=== PATIENT | male | born 1935 | race Caucasian/White ===

== ENCOUNTER 2020-10-31 08:02 | Inpatient (IN) | payer OTHER ==
[~2020-10-31] VITALS: Ht 175.3 cm; Wt 65.9 kg
--- NOTE | ~2020-10-31 | EEG ---
[facility] [place] [address] ELECTROENCEPHALOGRAM Name: ELLIS TEIXEIRA Room #: 453-P [facility] IN M.R.#: [id number] Admission: 10/31/20 Attend Phys: Thuy Fabian MD Discharge: Date of : 33 Report #: [id number] THIS REPORT FOR: //name// DATE OF SERVICE: 11/02/2020 This patient is being evaluated for altered mental status. EEG was done by placing the electrode by standard 10-20 system of electrode placement. Both referential and sequential montages were used for recording. Background activity is about 7-8 Hz and 30 microvolt. The patient went to sleep that is associated with bilaterally symmetrical sleep spindle and vertex sharp waves. Photic stimulation is unremarkable. No active epileptiform activity was noticed. IMPRESSION: This patient's study demonstrate bilateral slowing and poorly formed EEG. That is a nonspecific finding which can occur with encephalopathy, effect of psychotropic medication, dementia, etc. No active epileptiform activity was noticed during this record. Thank you very much for this referral. By: [id number] Kenneth Nolen MD /nt
[2020-10-31 08:05] VITALS: BP 173/90
[2020-10-31 08:26] LABS: ABSOLUTE NEUTROPHILS 6.5 thou/uL (1.4-8.2); BASOPHILS 0.2 % (0.0-2.0); HEMATOCRIT 40.6 % (42.0-52.0); HEMOGLOBIN 13.1 gm/dL (14.0-18.0); LYMPHOCYTES 5.5 % (24.0-44.0); MCH 29.4 pg (26.0-34.0); MCHC 32.2 g/dL (28.0-37.0); MCV 91.2 fL (80.0-100.0); MONOCYTES 7.1 % (1.0-8.0); PLATELET COUNT 150 thou/uL (150-400); POLYS 87.2 % (36.0-66.0); RBC 4.45 mil/uL (4.50-6.00); RDW 13.6 % (10.5-14.5); WBC 7.5 thou/uL (4.0-11.0)
[2020-10-31 08:30] LABS: URINE BILIRUBIN NEGATIVE (Negative); URINE BLOOD 3+ (Negative); URINE CLARITY CLEAR; URINE COLOR YELLOW; URINE GLUCOSE-RANDOM* NEGATIVE (Negative); URINE KETONES 2+ (Negative); URINE LEUKOCYTES-REFLEX NEGATIVE (Negative); URINE NITRITE-REFLEX NEGATIVE (Negative); URINE PROTEIN (DIPSTICK) TRACE (Negative); URINE SPECIFIC GRAVITY 1.025 (1.005-1.035)
[2020-10-31 08:40] LABS: AMP/METHAMP Negative (Negative); BARBITURATES Negative (Negative); BENZODIAZEPINES Negative (Negative); COCAINE Negative (Negative); METHADONE Negative (Negative); OPIATES Negative (Negative); PCP Negative (Negative)
[2020-10-31 08:40] LABS: CALCIUM 8.9 mg/dL (8.5-10.1); CREATININE 1.2 mg/dL (0.7-1.3); POTASSIUM 3.9 mmol/L (3.5-5.1)
[2020-10-31 08:41] LABS: APTT 27.6 Seconds (24.5-32.8); INR 1.24; PROTIME 13.4 Seconds (10.5-12.1)
[2020-10-31 08:50] LABS: CASTS None Seen /LPF (None Seen); MUCUS 4-6 Moderate strn/LPF (None Seen); SQUAMOUS 0-3 Few /LPF (0-3)
[2020-10-31 08:50] LABS: ALBUMIN 3.5 g/dL (3.4-5.0); TOTAL BILIRUBIN 1.4 mg/dL (0.2-1.0); TOTAL PROTEIN 7.1 g/dL (6.4-8.2)
[2020-10-31 08:51] LABS: URINE WBC-REFLEX 0-5 Rare /HPF (0-5)
[2020-10-31 08:52] LABS: BACTERIA-REFLEX None Seen /HPF (None Seen); CRYSTALS None Seen /LPF (None Seen)
--- NOTE | 2020-10-31 11:17 | EKG ---
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
[2020-10-31] MEDS ORDERED: LIPITOR 40 MG T40 M1 PO (11:48)
[2020-10-31] MEDS ORDERED: LISINOPRIL5 MG PO (11:48)
[2020-10-31 12:39] LABS: FOLIC ACID 15.1 ng/mL (8.6-58.9)
[2020-10-31 16:00] VITALS: BP 158/61
[2020-10-31 17:23] VITALS: BP 158/61
--- NOTE | 2020-10-31 17:35 | NUR ---
RN ATTEMPTED TO CALL REPORT
[2020-10-31 18:03] VITALS: BP 158/61
--- NOTE | 2020-10-31 18:08 | NUR ---
84 year old males admitted to the ED on 10-31-20 with AMS and was found outside in his yard and EMS was called. Patient has a NIH stroke scale of 3 but no known last known normal therefore is not a candidate for TPA. There is no evidence of large vessel occlusion on CTA. Patient found to have rhabdomyolysis and was treated with IV fluids. Patient is otherwise clinically stable but will need to be admitted for further evaluation. Neurology consult has been placed. The patient ID NOW in the ED is negative and ED Triage assessment lists the patient as not vaccinated. Per the ED records and MD interactions the patient is listed as alert and awake and confused. Noted to live at home with daughter Dawn at [phone] # busy x3 as well as son Baldomero Thapa at [phone]. Did reach son and gave him the name of the nurse and the direct line to the ED as per the ED they had not been able to make contact with the family. Son spoke again to me and looking at a move to possible SNF to LTC. Explained that CM will assure that therapy orders are in and will work with patient, son and MD's to collaborate needs at time of discharge including skilled care. Anticipate as plan of care with medical team develops CM will follow for any identified needs at discharge.
[2020-10-31 18:15] VITALS: BP 162/98
--- NOTE | 2020-10-31 18:39 | NUR ---
PATIENT ARRIVED TO UNIT AT APPROX. 1820. SETTLED IN BED AND ORIENTED TO ROOM; GGIVEN CALL LIGHT. PATIENT IS VERY CONFUSED AND ACTIVELY TRYING TO GET OUT OF BED. PATIENT NOT MAKIN SENSE; UNABLE TO DO ADMISSION HX OR EDUCATION. VSS. ENDORSED TO NOC RN
--- NOTE | 2020-10-31 20:00 | NUR ---
Admission assessment and history is completed as best as possible. Pt. with confusion and is a poor historian. He is resting quietly in the bed without any complaints. Er was unable to contact the daughter. Bed alarm is on,
[2020-11-01 04:06] VITALS: BP 140/65
[2020-11-01 05:21] LABS: BASOPHILS 0.2 % (0.0-2.0); EOSINOPHILS 0.3 % (0.0-3.0); HEMATOCRIT 37.7 % (42.0-52.0); HEMOGLOBIN 12.4 gm/dL (14.0-18.0); LYMPHOCYTES 8.2 % (24.0-44.0); MCH 29.9 pg (26.0-34.0); MCHC 32.8 g/dL (28.0-37.0); MCV 91.2 fL (80.0-100.0); MONOCYTES 6.5 % (1.0-8.0); PLATELET COUNT 133 thou/uL (150-400); POLYS 84.8 % (36.0-66.0); RBC 4.13 mil/uL (4.50-6.00); RDW 13.8 % (10.5-14.5); WBC 7.1 thou/uL (4.0-11.0)
--- NOTE | 2020-11-01 06:10 | NUR ---
Pt. rested quietly during the night when checked on during frequent rounds. Incontinent of stool and danny care given. Bed alarm is on.
[2020-11-01 06:13] LABS: CALCIUM 7.5 mg/dL (8.5-10.1); CREATININE 0.9 mg/dL (0.7-1.3); MAGNESIUM 1.8 mg/dL (1.8-2.4); POTASSIUM 3.9 mmol/L (3.5-5.1)
[2020-11-01 07:43] VITALS: BP 157/77
--- NOTE | 2020-11-01 09:26 | NUR ---
84 year old males admitted to the ED on 10-31-20 with AMS and was found outside in his yard and EMS was called. Patient has a NIH stroke scale of 3 but no known last known normal therefore is not a candidate for TPA. There is no evidence of large vessel occlusion on CTA. Patient found to have rhabdomyolysis and was treated with IV fluids. Patient is otherwise clinically stable but will need to be admitted for further evaluation. Neurology consult has been placed. The patient ID NOW in the ED is negative and ED Triage assessment lists the patient as not vaccinated. Per the ED records and MD interactions the patient is listed as alert and awake and confused. Noted to live at home with daughter Dawn at [phone] # busy x3 as well as son Baldomero Thapa at [phone]. Did reach son and gave him the name of the nurse and the direct line to the ED as per the ED they had not been able to make contact with the family. Son spoke again to me and looking at a move to possible SNF to LTC. Explained that CM will assure that therapy orders are in and will work with patient, son and MD's to collaborate needs at time of discharge including skilled care. CM CALLED PT'S DTR AND SON THIS AM...DTR'S PHONE WAS BUSY. CM LEFT VM FOR PT'S SON.CM FOLLOWING TO ASSIST WITH DC NEEDS.
[2020-11-01 15:17] VITALS: BP 145/88
--- NOTE | 2020-11-01 17:54 | NUR ---
ASSUMED PATIENTS CARE AT 1300. PATIENT HAS BEEN CALM AND COOPERATIVE. A&OX1-2. PERIODS OF CONFUSION NOTED. SISTER HER VISITING WITH PATIENT. PATIENT HAD DECREASED APPETITE AND DID NOT EAT LUNCH. HOWEVER, WAS READY TO EAT DINNER. IV WAS PULLED OUT. NEW IV PLACED. WILL CONTINUE TO MONITOR.
[2020-11-01 19:22] VITALS: BP 147/74
--- NOTE | 2020-11-02 04:28 | NUR ---
CARE ASSUMED AT 1900 PATIENT WAS UP ON THE RECLINER. PATIENT AOX1 CONFUSED AND FORGETFUL. PATIENT DENIED PAIN OR DISCMFORT. PATIENT TURNED Q 2 HOURS. CATH CARE DONE. FALL PRRECAUTION IN PLACE. PATIENT NEED X2 ASSIST WITH TRANSFER. PATIENT IN BED ASLEEP AT THIS TIME BREATHING REGULAR AND UNLABOURED.
[2020-11-02 07:55] VITALS: BP 144/63
--- NOTE | 2020-11-02 13:43 | NUR ---
RASHI SPOKE WITH PT'S SON THIS DAY AND HE ASKED THAT REFERRAL BE SENT TO [facility] FOR REVIEW FOE POSSIBLE ADMISSION. RASHI FAXED REFERRAL AND SPOKE WITH SHELLY. SHE CALLED AND INDICATED THAT THEY CAN'T ACCEPT PT THEY DON'T HAVE ANY BEDS AVAIABLE. CM TO NOTIFY SON AND SEE WHERE ELSE THEY WANT REFERRALS SENT.
[2020-11-02 15:50] VITALS: BP 168/87
--- NOTE | 2020-11-02 19:32 | NUR ---
Assumed pt care this am vs stable. Pleasantly confused through out the shift, got worse late in the afternoon. Pt has to be at the nurses station on his recliner since pt was starting to be impulsive. Was taken down to MRI but was not successful since pt could not straighten hi neck and head. MD advised 1 time haldol given, 1:1 sitter ordered. POC followed, no signs or verbalizations of distress noted. Endorsed to the night nurse.
--- NOTE | 2020-11-02 23:30 | NUR ---
Pt. pleasantly confused, but was a little restless earlier during the shift. Constantly wanting to get up out of the chair and pulled at tom catheter a few times. Pt. was walked around the unit a few times. Assisted to bed with bed alarm on.
--- NOTE | 2020-11-03 04:23 | NUR ---
Pt. rested quietly during the night, but had an episode of being compulsive. Tried to get up out of the bed without use of the call light. Pt. redirected back in the bed and bed alarm set.
[2020-11-03 08:54] VITALS: BP 131/75
--- NOTE | 2020-11-03 12:01 | NUR ---
ASSUMED PT CARE THIS AM. PT A&OX1, MAKES SOME NEEDS KNOWN. PATIENT HAS A DAWSON CATHETER IN PLACE. PATIENT HAS WEAKNESS IN LOWER EXTREMETIES. DAWSON CATHETER IN PLACE, DRAINING WELL. PATIENT TOOK ALL MORNING MEDICATIONS WITHOUT ISSUE. PATIENT IS ON ROOM AIR. IV PATENT, FLUIDS INFUSING. PATIENT REMAINS ON TELE. UP WITH ASSIST IN ROOM. FALL PRECAUTIONS ARE IN PLACE, CALL LIGHT WITHIN REACH.
--- NOTE | 2020-11-03 12:32 | NUR ---
RASHI CALLED AND SPOKE WITH LENNIE AT [facility] AND SHE INDIATED THAT HE FINANCE OFFICE IS REVIEWING REFERRAL AND THAT THEY WILL LIKELY BE ABLE TO ACCEPT BUT SHE WILL LET CM KNOW.
[2020-11-03 20:03] VITALS: BP 138/85
--- NOTE | 2020-11-04 06:00 | NUR ---
Pt. rested quietly at short intervals during the night when checked on during frequent rounds. He has attempted to get up out of bed a few times. He was brought out to the nurses station for closer observation. He ambulated to the bathroom with gait belt,walker and assist of one. Pt. has been voiding since tom catheter removal. Currently, resting quietly in the bed with bed alarm on.
[2020-11-04 08:59] VITALS: BP 154/64
--- NOTE | 2020-11-04 14:23 | NUR ---
ASSUMED CARE OF PATIENT AT SHIFT CHANGE. ASSESSMENT CHARTED. MEDICATIONS ADMINISTERED PER EMAR. VSS. PATIENT IS A&O TO SELF AND IMPULSIVE THIS DAY. PATIENT WAS MOVED TO NURSES STATION FOR MEALS THIS DAY DUE TO FALL RISK. PATIENT SHOVED STAFF'S HANDS AWAY WHEN TRYING TO REDIRECT HIM BACK TO BED, CHAIR OR BATHROOM. PATIENT GETTING UP WITH WALKER TO BATHROOM BUT STILL UNSTEADY. ZYPREXA STARTED FOR BEHAVIORS; PATIENT STILL RESTLESS & FIDGETING. FALL PRECAUTIONS REMAIN IN PLACE. VOICES NO NEEDS AT THIS TIME. TOLERATING PO INTAKE WELL. WILL CONTINUE TO MONITOR
[2020-11-04 17:14] VITALS: BP 129/76
[2020-11-04 19:43] VITALS: BP 120/75
--- NOTE | 2020-11-05 05:28 | NUR ---
Pt. rested at short intervals during the night when checked on during frequent rounds. Restless at times and was taken out to the nurses station in recliner chair for closer observations. He would not stay in the bed and sounded the bed alarm off. Cooperative with direct care. Currently in the bed resting quietly.
[2020-11-05 08:10] VITALS: BP 125/82
--- NOTE | 2020-11-05 19:22 | NUR ---
TODAY THIS PT HAS BEEN NSR ON THE MONITOR WITH NO STATED PAIN AND STABLE VS. HE WAS COMBATIVE AT THE START OF MY SHIFT BUT SINCE MEDICATION HE HAS BEEN JOKING AROUND AND TALKING WITH US. HE HAS OTHERWISE BEEN WALKING TO THE BATHROOM AND TOLERATING HIS MEAL TRAY FINE.
--- NOTE | 2020-11-06 03:54 | NUR ---
Pt. has rested very little during the shift. He is very restless and meds given for agitation (see emar) with little relief. He is currently up in the recliner at the nurses desk because he will not stay in the bed to rest. He attempts to get up out of the chair also and chair alarm is on. He has been toileted.
[2020-11-06 08:09] VITALS: BP 160/95
--- NOTE | 2020-11-06 11:35 | NUR ---
CM SPOKE WITH PT'S SON ELLIS THIS AM. CM ASKED WHERE HE AND HIS SISTER WILLIAM WANTED REFERRALS SENT FOR REVIEW FOR POSSIBLE ADMISSION. HE INDICATED THAT THEY HAD SPOKE AND THAT THEY WERE INTERESTED IN PT DISCHARGING HOME AND HAVING WILLIAM MOVING IN WITH HIM AND PROVIDING 24/7 SUPERVISION AND ASSISTANCE. CM CONVEYED THIS PLAN TO HOSPITALIST AND SHE INDICATED SHE WOULD REACH OUT TO SON THAT SHE THINKS PT MIGHT BENEFIT FROM STAY ON [facility]. CM FOLLOWING REGARDING DC PLANNING.
--- NOTE | 2020-11-06 12:11 | NUR ---
ASSUMED PT CARE THIS AM. PATIENT IS ALERT TO SELF, DOES NOT MAKE NEEDS KNOWN. PATIENT REFUSING MEDICATIONS THIS AM, AND HAS BEEN IMPULSIVE. PATIENT HAS BEEN INCONTINENT THIS SHIFT. PATIENT REFUSED TO BE ASSESSED BY THIS NURSE, ASSESSED MUCH ALLOWED. PATIENT UP WITH MAX ASSIST FOR NURSING STAFF. PATIENT APPEARS TO BE IN NO PAIN, RESTING AT THIS TIME. FALL PRECAUTIONS ARE IN PLACE.
[2020-11-06 17:59] VITALS: BP 132/91
[2020-11-06 19:38] VITALS: BP 134/80
--- NOTE | 2020-11-07 03:35 | NUR ---
TODAY THIS PT HAS BEEN CALM AND COOPERATIVE FOR THE MOST PART OF THE NIGHT HE DID LET US PUT HIS TELE MONITOR BACK ON AND HE DID TAKE HIS MEDICATIONS FROM ME. HE HAS BEEN IN HIS CHAIR FOR SOME OF THE NIGHT AND AWAITING FOR THE NEXT PLAN.
[2020-11-07 07:25] VITALS: BP 147/67
--- NOTE | 2020-11-07 09:46 | NUR ---
Nutrition: No BM documented since 10/31. On PRN miralax. May benefit from scheduled bowel regimen.
--- NOTE | 2020-11-07 11:26 | NUR ---
ASSUMED PT CARE THIS AM. PATIENT IS A&OX1, DOES NOT MAKE ALL NEEDS KNOWN. PATIENT TOOK MORNING MEDICATIONS WITHOUT ISSUE. PATIENT STILL IMPULSIVE THIS SHIFT. PATIENT REMAINS INCONTINENT. PATIENT IS ON ROOM AIR. PATIENT REMAINS ON TELEMETRY. PATIENT IS A MAX ASSIST. FALL PRECAUTIONS ARE IN PLACE.
--- NOTE | 2020-11-07 15:33 | NUR ---
CM GOT VM FROM [facility] ON [facility]S [facility] AND SHE INDICATED THAT THEY ARE PLANNING TO ACCEPT PT THIS DAY PENDING NEGATIVE COVID TEST. CM NOTIFED NURSING STAFF OF UNIT. CM REQUESTED CHART COPY. ANTICIPATE PT GOING TO [facility]S HERE AT [facility] THIS EVENING. PT'S SON AWARE AND AGREEABLE. NO OTHER CM INTERVENTION INDICATED. CASE CLOSED.
[2020-11-07] MEDS ORDERED: DEPAKOTE SPRIN125 MG PO (17:11)
[2020-11-07] MEDS ORDERED: PROTONIX 20 MG20 M1 PO (17:11)
[2020-11-07] MEDS ORDERED: NORVASC5 MG PO (17:11)
[2020-11-07] MEDS ORDERED: ZYPREXA 5 MG TAB5 M1 PO (17:11)
[2020-11-07 17:23] VITALS: BP 135/86
--- NOTE | 2020-11-16 02:00 | HC ---
[facility] [place] [address] CONSULTATION Name: ELLIS TEIXEIRA Room #: 453-P [facility] IN M.R.#: [id number] Admission: 10/31/20 Attend Phys: Thuy Fabian MD Discharge: 11/07/20 Date of : 34 Report #: [id number] THIS REPORT FOR: cc: FAM - Family physician unknown FAM - Family physician unknown Kenneth Nolen MD ~ DATE OF SERVICE: 11/01/2020 HISTORY OF PRESENT ILLNESS: An 84-year-old male patient who is a poor historian. There is no family member I can reach. He is admitted with altered mental status. He was found by neighbors and was brought to Emergency Room. It is not clear what his baseline mental status is. In the emergency room, he underwent a CT as well as CT angiogram and that was mostly unremarkable. He continued to be confused. REVIEW OF SYSTEMS: Very difficult to tell because there is no family member here and he cannot provide a reliable history. A 14-point review of system was attempted, but it is not complete. PAST MEDICAL HISTORY: Unknown. He said he did not have CVA, but he is unreliable. FAMILY HISTORY: Unavailable. SOCIAL HISTORY: Again, he says he does not drink alcohol or smoke, but he is not reliable. PHYSICAL EXAMINATION: He can tell me what month it is. In fact, when I asked him what month it is, he just starts counting months from March to February. He does not know what hospital he is in. He does not know who the president is. His speech appeared to be there, but does not make any sense. He can sometimes follow simple commands. His neurological examination is suboptimal. He moves all 4 extremities. I am not sure he understands the instructions to do the position sense. He could not cooperate with the fundus examinations or the cerebellar testing. His blood pressure is 157/77, respirations 18, pulse is 52, temperature is 97.7. His pulses are difficult to feel. Cardiac examinations appear unremarkable. No respiratory difficulty. His hearing and vision looks adequate. He has no abnormality of the face. No thyroid masses. No carotid bruit. LABORATORY DATA: His last platelet count is 133. IMAGING STUDIES: His imaging study has been mentioned above. IMPRESSION AND PLAN: Pretty difficult to see why he passed out. I think MRI of the head is desirable and we will see if we can reach some family member and try [facility] [address] [place] [address] CONSULTATION Name: ELLIS TEIXEIRA Room #: 453-P [facility] IN M.R.#: [id number] Admission: 10/31/20 Attend Phys: Thuy Fabian MD Discharge: 11/07/20 Date of : 34 Report #: [id number] to arrange that. I will also check an EEG. He also needs systemic workup to rule out any systemic cause for his passing out spell and I will defer that to the admitting physician. Thank you very much for this referral and if you have any questions, please feel free to contact me. <ELECTRONICALLY SIGNED> By: Kenneth Nolen MD 11/16/20 0200 [id number] 17 Kenneth Nolen MD /nt
== END 2020-11-07 18:37 | DRG 682 ==
LOC: ER 08:02 → EROBS 11:36 → 4W 11:36
PROVIDERS: Emergency Medicine; Nurse Practitioner; Psychiatry & Neurology Psychiatry; ADMIT Hospitalist; ATTEND Hospitalist
DX: N17.0 Acute kidney failure with tubular necrosis (principal); G93.41 Metabolic encephalopathy; M62.82 Rhabdomyolysis; Z20.822 Contact with and (suspected) exposure to COVID-19; I10 Essential (primary) hypertension; E78.5 Hyperlipidemia, unspecified; E04.1 Nontoxic single thyroid nodule; R53.81 Other malaise; R63.4 Abnormal weight loss; G47.00 Insomnia, unspecified; F03.90 Unspecified dementia, unspecified severity, without behavioral disturbance, psychotic disturbance, mood disturbance, and anxiety; R41.0 Disorientation, unspecified; R45.1 Restlessness and agitation; I95.1 Orthostatic hypotension; Z87.891 Personal history of nicotine dependence; Z68.21 Body mass index [BMI] 21.0-21.9, adult; Z79.899 Other long term (current) drug therapy
CPT/HCPCS: 10045

== ENCOUNTER 2020-11-07 16:19 | Inpatient (IN) | payer OTHER ==
[~2020-11-07] VITALS: Ht 175.3 cm; Wt 66.7 kg
--- NOTE | ~2020-11-07 | D ---
[facility] [place] [address] DISCHARGE SUMMARY Name: BALDOMERO TEIXEIRA Room #: 524B-B [facility] IN M.R.#: [id number] Admission: 11/07/20 Attend Phys: Kathy Dawn MD Discharge: 11/15/20 Date of : 33 Report #: [id number] THIS REPORT FOR: cc: FAM - Family physician unknown FAM - Family physician unknown Sonny Ralph DO ~ DATE OF SERVICE: 11/15/2020 INPATIENT PSYCHIATRIC DISCHARGE SUMMARY DISCHARGE DIAGNOSES: The patient is being discharged to the [facility], [facility], due to acute respiratory failure, COVID-19 pneumonia. 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 Medical comorbidities include hypertension, hyperlipidemia. Remdesivir, steroids and vitamin therapy was started on the [facility] due to the delay in medical bed given the COVID crisis. The patient on the [facility] had been getting special precautions ____. Activity level, he had become bedridden. DISCHARGE MEDICATIONS: Included albuterol, ipratropium bromide nebulizer 3 mL q.4 hours p.r.n. shortness of breath, vitamin C 500 mg p.o. b.i.d., atorvastatin 40 mg oral daily, cholecalciferol 1000 International Units oral daily, trazodone 50 mg p.o. at bedtime, Decadron 6 mg IV daily. Depakote was discontinued on 11/15/2020 due to the COVID respiratory failure situation as well as his olanzapine, he had been on 5 mg p.o. b.i.d., also he had been on Norvasc 5 mg p.o. daily, [facility]. ____ remdesivir formulation ____, zinc sulfate 220 mg p.o. daily. The patient was receiving wound care in lieu of ulcers. Dr. Young recommended barrier cream to the ulcers twice daily and p.r.n. The patient ____ turning every 2 hours. A cushion placed in chair when he was sitting up. Protein supplementation for continued healing. LABORATORY DATA: Significant laboratories during the admission several were done on the medical admission, looks like the most recent ones were blood gas this morning, which I ordered, pH 7.482, pCO2 of 35.7, pO2 53.3, bicarbonate 26.1. He was placed on 3 liters of oxygen after the blood gas determined his absolute hypoxia. Chemistries from 11/15/2020, sodium 143, potassium 4.9, chloride 105, bicarbonate 28, anion gap 10, BUN 27, creatinine 1.0, estimated GFR 71, glucose 97. A1c 5.6. Lactic acid 1.3. Ammonia level 39. CK 161, triglycerides 64, cholesterol 141, LDL 86, HDL 43. B12 478, folate 15.1. TSH 1.019. Toxicology was negative for illicit substances. COVID-19 was negative on 11/07/2020, positive on 11/14/2020. REASON FOR PSYCHIATRIC ADMISSION: Back on 11/07/2020 or so, an 84-year-old male, brought to the ER on 10/31/2020 with concerns of altered mental status. He had been found on his front yard. The patient was confused, oriented to time and person, but did not know the date. No history of trauma. He was admitted medically for dehydration, electrolyte disturbance, I believe. [facility] [address] [place] [address] DISCHARGE SUMMARY Name: BALDOMERO TEIXEIRA Room #: 524B-B [facility] IN M.R.#: [id number] Admission: 11/07/20 Attend Phys: Kathy Dawn MD Discharge: 11/15/20 Date of : 33 Report #: [id number] HOSPITAL COURSE: The patient was admitted to Geriatric Psychiatry Unit. His son, Baldomero, is his DPOA. The patient had a fairly unremarkable course. Behavior, pleasantly confused. Unfortunately, there was an outbreak on the unit. He did become COVID positive. He developed COVID-19 pneumonia, currently in acute respiratory failure. On the day of discharge, Dr. Brito and I made a telephone call to his son, Baldomero, discussed his situation. Baldomero requested medical care; however, he did not want ICU level of care including intubation. Therefore, the patient is being discharged to the medical floor with COVID precautions. I ____ his mental status exam today, so I refer the reader to that. Vital signs at the time of discharge, temperature 37.1, pulse ____, respirations 18, BP 108/83. He was at 2 liters in the evening. The last O2 sat of 81%, I believe, was on room air. There was another one done shortly before at 1538 where he was 92%. So I believe ____ oxygen. PROGNOSIS: Guarded to poor. No code. By: 2145 20 Sonny Ralph, DO /nt
[~2020-11-07 16:19] MED LIST: LIPITOR 40 MG T40 M1 PO; LISINOPRIL5 MG PO
[2020-11-07] MEDS ORDERED: DEPAKOTE SPRIN125 MG PO (17:11)
[2020-11-07] MEDS ORDERED: NORVASC5 MG PO (17:11)
[2020-11-07] MEDS ORDERED: ZYPREXA 5 MG TAB5 M1 PO (17:11)
[2020-11-07] MEDS ORDERED: PROTONIX 20 MG20 M1 PO (17:11)
[2020-11-07 20:23] VITALS: BP 115/67
[2020-11-08 08:21] LABS: CHOLESTEROL 141 mg/dL (<200); HDL CHOLESTEROL 43 mg/dL (>40); LDL CHOLESTEROL 86 mg/dL (<100); TC:HDL 3.3 Ratio (Not establshd); TRIGLYCERIDE 64 mg/dL (<150); VLDL 13 mg/dL (<40)
[2020-11-08 09:03] VITALS: BP 132/85
--- NOTE | 2020-11-08 19:32 | NUR ---
PATIENT HAS BEEN UP IN WHEELCHAIR, AND OUT ON THE UNIT. HE IS FORGETFUL, A&OX1, HE HAS BEEN CALM, COOPERATIVE WITH CARE. PATIENT TOOK ALL MEDICATION CRUSHED IN PUDDING, HE IS EATING MEALS, AND DRINKING FLUID WELL, HE IS ABLE TO FEED SELF. PATIENT IS INCONTINENT OF B&B, INCONTINENT CARE PROVIDED PER STAFF. PATIENT RESPONDS TO INTERNAL STIMULI, TALKS TO SELF, AND UNSEEN OTHERS. NO AGITATION OR AGGRESSIVE BEHAVIOR NOTED AT THIS TIME, NO SIGN OF ACUTE DISTRESS NOTED AT THIS TIME. AFFECT IS FLAT/BLUNTED, MOOD IS DEPRESSED, WILL MONITOR FOR SAFETY.
[2020-11-08 20:03] VITALS: BP 109/74
[2020-11-08 20:40] VITALS: BP 109/74
[2020-11-09 00:06] LABS: GLYCOHEMOGLOBIN (HGB A1C) 5.6 % (4.8-5.6)
--- NOTE | 2020-11-09 03:53 | NUR ---
PATIENT BROUGHT OUT TO DINING ROOM AT 0230 AFTER HE KEPT TRYING TO GET OUT OF BED. PATIENT TAKE TO THE BATHROOM WHERE HE VOIDED AND THEN TO SIT IN DINING ROOM IN RECLINER. PATIENT KEPT GETTING UP FROM IT. WALKED PATIENT IN HALLWAY BUT HE WAS AGITATED THAT HE COULDN['T GO BY HIMSELF. PATIENT PLACED BACK IN RECLINER AND THEN HE GOT UP AND WALKED OVER TO A FEMALE PATIENT WHO WAS SLEEPING IN A RECLINER AND REACHED OUT TO TOUCH HER. HE WAS ANGRY WHEN I TOOK HIS ARM AWAY FROM PATIENT AND EXPLAINED HE NEEDED TO LEAVE HER ALONE BECAUSE SHE WAS SLEEPING. OLANZAPINE 5MG PO CRUSHED IN ICECREAM GIVEN TO PATIENT. PATIENT SITTING IN RECLINER AND HAS TO BE REMINDED TO STAY SEATED IN CHAIR.
--- NOTE | 2020-11-09 05:48 | NUR ---
LATE ENTRY 11/07/201914 PATIENT ADMITTED TO THE UNIT VIA RECLINER A TRANSFER FROM [facility]. UPON ARRIVAL TO UNIT PATIENT IS AAOX1. SOME OF PATIENT SPEECH IS DIFFICULT TO COMPREHEND. PATIENT TALKS TO HIMSELF IN A SOFT VOICE. SITS IN CHAIR AND PICKS AT HIS BLANKET. AT THIS TIME HE IS COOPERATIVE AND FOLLOWING ALL COMMANDS. STAFF AT TABLE WITH PATIENT. ATTEMPTED TO STAND PATIENT UP BUT HE IS UNSTEADY ON HIS FEET. NO S/S OF DISTRESS NOTED. PATIENT DRESSED IN HOSPITAL GOWN. NO SKIN ISSUES NOTED. VSS. NOTIFIED CONSULAR OFFICER AND MD OF ARRIVAL TO THE UNIT. SAFETY PRECAUTION INITIATED. WILL CONTINUE TO MONITOR PATIENT FOR CHANGE IN STATUS.
[2020-11-09 10:13] VITALS: BP 132/62
--- NOTE | 2020-11-09 18:30 | NUR ---
Assumed pt care at 0700. pt was in the day room. ALERT and oriented to person. Confused upon assessments. Assessments completed, vss. Lungs clear, active bowel sound. no sign of acute distress noted. No c/o pain. No sign of si/hi. Took meds crushed in yogurt, no difficulty noted. Ambulates with a Gerichair. Pt was unable to follow commands during therapy. Pt is a MAx assist. Incontinent of bowel and bladder. Required assistance with feeding this shift. At this time pt is in the day room. will continue to monitor.
[2020-11-09 19:52] VITALS: BP 123/71
[2020-11-09 20:00] VITALS: BP 123/71
--- NOTE | 2020-11-10 02:24 | NUR ---
PATIENT CARE WAS RESUMED AT 1900. HE IS ALERT AND CONFUSED. ABLE TO COMMUNICATE AND VERBALIZE SOME NEEDS. LUNGS ARE CLEAR, BS ACTIVE X4 QUAD DENIES PAINS,SI/AVH/HI.HE IS INCONTINENT OF BOWEL AND BLADDER. ABD IS SOFT, FLAT AND NONE TENDER. HE TOOK HIS MEDS WHOLE AND NO BEHAVIOR NOTED AT THIS TIME. Q12 MINUTES CHECK ARE ONGOING. HE IS ASSISTED WITH NATY CARE AND REPOSITION.BED IS LOW, LOCKED AND ALARMED. HE HAS A YELLOW TOP AND NON SKID SOCKS ON.CONTINUE CARE AND MONITOR.
[2020-11-10 10:30] VITALS: BP 139/65
--- NOTE | 2020-11-10 13:00 | H ---
[facility] [place] [address] HISTORY AND PHYSICAL Name: ELLIS TEIXEIRA Room #: 524B-B ADM IN M.R.#: [id number] Admission: 11/07/20 Attend Phys: Kathy Dawn MD Discharge: Date of : 34 Report #: [id number] THIS REPORT FOR: cc: FAM - Family physician unknown FAM - Family physician unknown Sonny Ralph DO ~ DATE OF SERVICE: 11/08/2020 INPATIENT PSYCHIATRIC EVALUATION DATE OF EVALUATION: 11/08/2020 ATTENDING PSYCHIATRIST: Sonny Ralph DO RANCH RIDER: Thuy Fabian MD. REASON FOR ADMISSION: Behavioral disturbance in the setting of dementia. SOURCES OF INFORMATION: Records from the medical admission, downstairs [address] Dawn's notes, Dr. Fabian's notes, collateral from his son, Ellis, who is his son, not his DPOA, he has no DPOA. CHIEF COMPLAINT: Unspecified. HISTORY OF PRESENT ILLNESS: An 84-year-old male who was brought to the ER back on 10/31/2020 with concerns of altered mental status. Apparently, the patient was found in the front yard, unsure if that was his home or not. The patient was confused, awake, alert, able to answer questions, he was oriented to time and person, but does not know the date and cannot tell was last known normal. He denied physical complaints. No history of trauma per EMS. The patient was able to give the date of his , but does not reliably get the accurate year. HOME MEDICATIONS: Included atorvastatin, lisinopril. ALLERGIES: No known. REVIEW OF SYSTEMS: From the ER, currently as best I could tell CONSTITUTIONAL: Denies fever, chills, malaise, unexplained weight changes. EYES: Denies eye pain, visual change, or discharge. HENT: Denies hearing changes, ear drainage or ear pain. Denies neck pain or neck stiffness. Denies congestion. Denies sore throat. RESPIRATORY: Denies shortness of breath, cough, hemoptysis. CARDIOVASCULAR: Denies chest pain, chest pain with exertion, or edema. GASTROINTESTINAL: Denies abdominal pain, nausea, vomiting, or diarrhea. GENITOURINARY: Denies burning, frequency or dysuria. MUSCULOSKELETAL: Denies back pain, joint pain, muscle weakness or myalgias. [facility] [address] [place] [address] HISTORY AND PHYSICAL Name: ELLIS TEIXEIRA Room #: 524B-B ADM IN M.R.#: [id number] Admission: 11/07/20 Attend Phys: Kathy Dawn MD Discharge: Date of : 34 Report #: [id number] SKIN: Denies rash. NEUROLOGIC: Complaints of generalized weakness and confusion. No headache. Otherwise, 10-point review of systems negative. Weight currently is 65.9 kilos, he was 81.65 at the beginning of his medical admission. He had an EEG on 10/31/2020, study demonstrate bilateral slowing and poorly formed EEG, nonspecific finding which can occur with encephalopathy, , dementia, etc. No active epileptiform activity was noticed during this record. EKG showed QTc 474, QT 403, OR interval 208 milliseconds. That is first-degree block and interval rate of 83. LABORATORY DATA: Done in the beginning of his medical admission, last one on 11/01/2020, white count 7.1, H and H 12.4 and 37.7, platelet count 133. Coags 13.4, INR 1.24, APTT 27.6. Chemistry: Sodium 139, potassium 3.9, chloride 105, bicarbonate 24, anion gap 10, BUN 13, creatinine 0.9, estimated GFR 80, glucose 81. Lactic acid 1.3, calcium low at 7.5, magnesium normal at 1.8, total bilirubin 1.4, AST 50, ALT 24, alkaline phosphatase 67. CK 161, troponin high sensitivity is 29, total protein 7.1, albumin 3.5, triglycerides 64. Cholesterol 141, LDL 86, HDL 43. B12 relatively normal at 478. Folate normal at 15.1. TSH normal at 1.019. Urinalysis showed trace protein, 2+ ketones, 3+ blood, 11-20 red blood cells and moderate mucus consistent with dehydration. Urine drug screen and urine alcohol were negative. COVID-19 serology done on 11/07/2020 was negative. IMAGING DATA: This admission included a head MRI done on 11/03/2020, small vessel ischemic change without evidence of acute intracranial process, diffuse cerebral atrophy as the MRI. There was a CT angiogram of the neck with contrast, was grossly normal, degree of carotid narrowing less than 20%, several thyroid nodules. Chest x-ray from the , no acute process. PHYSICAL EXAMINATION: VITAL SIGNS: Temperature 35.9, pulse 96, respirations 18, BP 132/85, O2 sat 99%. MUSCULOSKELETAL: He can walk a few steps. He was able to stand on his own, has a gait belt, frail, ill-appearing. MENTAL STATUS EXAMINATION: A well-developed male appearing stated age. Attention limited. Concentration limited. Speech normal in rate. Thought process: Linear and goal directed. Thought content, focused on the present. Otherwise, relative poverty of thought. Denied SI, HI. Denied auditory or visual type hallucinations. Denied helplessness and hopelessness. Mood and affect congruent, euthymic, fair range. Insight and judgment limited. Fund of knowledge below average. FORMULATION: An 84-year-old male medically admitted due to possible falls, altered mental status. The patient has not been formally diagnosed with [facility] [address] [place] [address] HISTORY AND PHYSICAL Name: ELLIS TEIXEIRA Room #: 524B-B ADM IN M.R.#: [id number] Admission: 11/07/20 Attend Phys: Kathy Dawn MD Discharge: Date of : 34 Report #: [id number] dementia, but history concerning for dementia. DIAGNOSES: Major neurocognitive disorder, likely due to Alzheimer's disease with behavioral disturbance. Medical comorbidities include hypertension, hyperlipidemia, thyroid nodule. PLAN: Start senna docusate 2 tabs p.o. b.i.d. Last bowel movement was 27th. Depakote level in a.m., he is on 250 b.i.d. Regarding his olanzapine, continue 5 mg twice a day for now. We will see how the patient does in the next few days. Discontinue ibuprofen. Son says he has arranged the patient's stepdaughter to be there during the day at home. There is no healthcare general financial DPOA. I explained to the son, Ellis this may be needed for facility placement. He is interested in adult daycare for his father as well. STRENGTHS: Supportive family. WEAKNESSES: No DPOA, advanced age, neurodegenerative disorder. Also, I neglected to conclude collateral from Dr. Dawn's evaluation. He was started on Depakote 250 b.i.d. Continue Zyprexa. DIAGNOSES: Delirium, dementia. Time spent on this case, greater than 60 minutes, greater than 50% time spent reviewing records and coordination of care. <ELECTRONICALLY SIGNED> By: Sonny Ralph DO 11/10/20 1300 [id number] Sonny Ralph, /nt
--- NOTE | 2020-11-10 17:54 | NUR ---
EPISODES OF INCREASED RESTLESNESS,MILD AGITATION THIS SHIFT-MOSTLY NOT BEING ABLE TO GET UP AND WALK ON OWN-OBSERVED SEVERAL TIMES (MOSTLYAFTER LUNCH)WHEN HE WAS [facility] HE WAS "GOING TO WORK"
[2020-11-10 20:00] VITALS: BP 112/66
[2020-11-10 20:34] VITALS: BP 112/66
--- NOTE | 2020-11-11 02:29 | NUR ---
PATIENT CARE WAS RESUMED AT 1900. HE IS ALERT AND ORIENTED.HE IS A MAX ASSIST WITH CARE. LUNGS ARE CLEAR BS ACTIVE X 4 QUADS. HE DENIES PAIN/SI/AVH/HI. HE HAS A YELLOW TOP AND SOCKS ON. BED IS LOW, LOCKED, ALARMED. HE TOOK HIS MEDS WHOLE. Q 12MINUTES CHECK ARE ONGOING. HE IS INCONTINENT OF BLADDER. NO BEHAVOIR NOTED AT THIS TIME.CONTINUE CARE
[2020-11-11 10:07] VITALS: BP 146/64
[2020-11-11 10:08] VITALS: BP 146/64
--- NOTE | 2020-11-11 10:41 | NUR ---
PATIENT CARE ASSUMED AT 0700 - SITTING IN DINING BUSTOS AT CHANGE OF SHIFT. NON RESPONSIVE TO QUESTIONS ADDRESSED TO HIM. TOLERATED MEDICATION WELL. HEART RATE STRONG AND STEADY WHEN ASSESSED. LUNGS CLEAR ON AUSCULTATION. QUIET AND CALM - ATE WELL FOR BREAKFAST.
[2020-11-11 19:33] VITALS: BP 106/69
[2020-11-11 19:50] VITALS: BP 161/88
--- NOTE | 2020-11-11 23:58 | NUR ---
Assumed care on 11/11/20 @ 1900, seated in the day room @ a table @ start of shift, cooperated with assessment, HRRR, Lungs CTA, ABD n x 4Q, not able to remember his last bm, no BM today and none yesterday. A&Ox2 Refused P.O. meds. Order obtained for IM Olanzapine 5mg given for refusal of P.O. Olanzapine 5mg. Bed in low position. Will continue to monitor for safety and comfort as per unit protocol.
[2020-11-12 07:45] VITALS: BP 138/77
[2020-11-12 10:14] VITALS: BP 138/77
--- NOTE | 2020-11-12 10:59 | NUR ---
RESUMMED CARE FROM OVERNIGHT SHIFT THIS AM, PATIENT SITTING IN DAYROOM QUIET. 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 PATIENT ATE BREAKFAST TOOK MEDICATION CRUSHED IN APPLESAUCE. PATIENTS ABDOMEN SOFT BOWEL SOUNDS PRESENT PATIENTS LUNGS CLEAR; PATIENT CALM COOPERATIVE. WILL CONTINUE TO MONITOR PATIENT FOR SAFETY AND BEHAVIORS.
--- NOTE | 2020-11-12 15:30 | NUR ---
Check-in with pt. Pt. was sitting down at the table. He was pleasant and willing to talk. Pt. was not oriented to time. He would tell stories and would say that it just happened minutes ago. Attempts to orient patient to the current time and setting, he would return back to the story.
[2020-11-12 19:27] VITALS: BP 130/67
--- NOTE | 2020-11-13 01:21 | NUR ---
Assumed care on 11/12/20 @ 1900, in bed at start of shift, eyes closed, responded to voice and spoke but word salad noted. Confused speach and no clear train of thought. Cooperated with assessment, A&Ox1 to self, HRRR, Lung sounds CTA however diminished, ABD nx 4Q. Last reported BM on 11/10. Took meds crushed in applesauce with sips of thin water. coughed on water, will try thickened water next offering. Bed in low position, bed alarm set, will continue to monitor for safety and comfort as per unit protocol.
[2020-11-13 09:37] VITALS: BP 118/67
--- NOTE | 2020-11-13 13:50 | NUR ---
Assumed pt care at 0700. Pt was alert and oriented to self. Calm and cooperative with care. Lungs clear, active bowel sounds. Denies si/hi, denies pain.Took meds crushed with yogurt, NO DIFFICULTY NOTED. Ambulates with a chapis chair. Incontinent of bowel x2. Incontinent of bladder x3 at this time. Pt had 2 episode of loose stool. At This time pt is in the day room listening to music. Will continue to monitor.
[2020-11-13 19:40] VITALS: BP 124/100
[2020-11-13 19:45] VITALS: BP 124/100
[2020-11-13 19:48] VITALS: BP 124/100
--- NOTE | 2020-11-13 20:16 | NUR ---
Assumed care on 11/13/20 @ 1900, reclined in a chapis chair in the day room with eyes closed. Chair alarm in place, patient calm and resting. Will be drinking fluids nectar thick while waiting for ST eval and TX order. Reportedly had diahhrea today x3 and will hold Senna with HS meds. ST eval and treatment order in place. Cooperative with care at this time. Unable to answer mental health assessment questions beyond name. A&Ox1 to person. Will continue to monitor as per unit protocol for safty and comfort.
[2020-11-14 09:18] VITALS: BP 139/55
[2020-11-14 17:20] VITALS: BP 119/77
--- NOTE | 2020-11-14 17:53 | NUR ---
Assumed pt care at 0700. pt was oriented to person. Assessments completed,vss. Took meds crushed with yogurt. Active bowel sounds, denies si/hi, denies pain at this time. calm and cooperative with care. Ambulates with a Claudette chair. incontinent of bowel and bladder. Assisted with all meals this shift. At this time pt is in his room resting. will continue to monitor.
[2020-11-14 20:12] VITALS: BP 125/55
--- NOTE | 2020-11-15 04:06 | NUR ---
11-14-20 CARE TRANSFERRED 1899. LATER PT AAOX1, VSS, ELEVATED TEMP, RR EVEN AND NONLABORED ON RA, PT LUNGS CLEAR, HT RR, ABD SOFT/FLAT/ACTIVE. PT DENIES PAIN AND OBSERVED NO S/S OF PAIN. PT DENIES SI/HI AND OBSERVED NO SI/HI BEHAVIORS. PT DRANK 240ML OF THICKEN LEMON WATER. LATER PT HAD NO DIFFICULTIEE TAKING MEDICATION CRUSHED IN APPLESAUCE, PT ATE 100% OF APPLESAUCE. LATER HEARD AUDIBLE WHEEZING, UPON AUSCULTATION OF LUNGS WHEEZING NOTED IN UPPER LUNG ALMAZAN, BASES CLEAR BUT DIMINISHED, ALSO NOTED PT HAVING CHILLS, SKIN IS W/D. 02 SAT 95% RA. HCP Ja GRIFFITHS NP CONSULTED AND RT ORDERS ACKNOWLEDGE. PT HAD BEEN REPOSITION Q2 WHILE AWAKE. PT WILL CONTINUE TO BE MONITOR PER [facility] PROTOCOL.
[2020-11-15 10:15] VITALS: BP 150/105
[2020-11-15 10:46] LABS: BE(vivo) 2.9 mmol/L (-2 to +3); HCO3 26.1 mmol/L (22.0-26.0); PCO2 35.7 mmHg (35.0-45.0); PO2 53.3 mmHg (80.0-100.0); pH 7.482 (7.360-7.450); sO2 90.1 % (92.0-98.0)
--- NOTE | 2020-11-15 12:52 | NUR ---
Patient placed on 3L O2 per NC due to O2 saturations in the 70-80% range. On follow up, O2 95% on 3L.
[2020-11-15 13:03] VITALS: BP 150/105
--- NOTE | 2020-11-15 13:46 | NUR ---
RESUMMED CARE FROM OVERNIGHT SHIFT THIS AM, PATIENT IN ROOM LYING QUIET. PATIENT ALERT TO SELF ONLY PATIENT UNABLE TO TELL ME ABOUT SI/HI/AH/VH AT PRESENT. PATIENT IS COVID POSITIVE PATIENTS O2 SATS WERE 85 PERCENT. PATIENT PLACED ON 3 LITERS OF OXYGEN HIS O2 SATS WENT TO 95 PERCENT. PATIENTS ABDOMEN SOFT BOWEL SOUNDS PRESENT PATIENTS LUNGS HAS RATTLES IN UPPER LOBES. PATIENT CALM COOPERATIVE PATIENT IS DISCHARGING TO [facility] DUE TO BREATHING PROBLEMS. WILL CONTINUE TO MONITOR PATIENT FOR SAFETY AND BEHAVIORS.
[2020-11-15] MEDS ORDERED: PROTONIX 20 MG20 MG PO (13:47)
[2020-11-15 18:54] VITALS: BP 108/83
[2020-11-15 19:37] LABS: POTASSIUM 4.9 mmol/L (3.5-5.1)
[2020-11-15 22:04] VITALS: BP 108/83
--- NOTE | 2020-11-16 04:14 | NUR ---
11-15-20 CARE TRANSFERRED 1899. PT AAOX1, VSS WITH ELEVATED TEMP, RR EVEN AND NONLABORED ON RA. LUNG WHEEZING IN UPER LUNG ALMAZAN, CLEAR/DIMINISHED AT BASES. HT RR, ABD SOFT/ACTIVE. PT HAS LEFT FORARM IV RUNNING AT 125ML/HR, IV CLEAN DRY AND INTACT. PT WAS CLEANED AND REPOSITION, NOTED REDNESS IN COCCYX, PT LEFT OPEN TO AIR. LATER IV FLUSHED WITH 30ML OF NS AND LOCKED. LATER GAVE REPORT TO 3W RN AND PT WAS TRANSFERRED VIA W/CHAIR WITH INVENTORY. PT DAUGHTER WILLIAM CONTACTED ON TRANSFERRED. CARE TRANSFERED AT 2215 TO 3W.
== END 2020-11-15 22:04 | disposition short-term general hospital (02) | DRG 884 ==
LOC: SBH 16:19
PROVIDERS: Hospitalist; Psychiatry & Neurology Psychiatry; ADMIT Psychiatry & Neurology Psychiatry; ATTEND Psychiatry & Neurology Psychiatry
PROC: XW033E5 Introduction of Remdesivir Anti-infective into Peripheral Vein, Percutaneous Approach, New Technology Group 5 (ICD-10-PCS; principal; 2020-11-15)
DX: F03.91 Unspecified dementia, unspecified severity, with behavioral disturbance (principal); F05 Delirium due to known physiological condition; U07.1 COVID-19; J12.82 Pneumonia due to coronavirus disease 2019; J96.01 Acute respiratory failure with hypoxia; I10 Essential (primary) hypertension; E78.5 Hyperlipidemia, unspecified; E04.1 Nontoxic single thyroid nodule; L89.322 Pressure ulcer of left buttock, stage 2; L89.312 Pressure ulcer of right buttock, stage 2; R53.81 Other malaise; Z74.01 Bed confinement status; Z79.899 Other long term (current) drug therapy; Z79.51 Long term (current) use of inhaled steroids
CPT/HCPCS: 10880

== ENCOUNTER 2020-11-15 19:50 | Inpatient (IN) | payer OTHER ==
[~2020-11-15] VITALS: Ht 175.3 cm; Wt 65.4 kg
[~2020-11-15 19:50] MED LIST changes: +DEPAKOTE SPRIN125 MG PO; +NORVASC5 MG PO; +PROTONIX 20 MG20 M1 PO; +PROTONIX 20 MG20 MG PO; +ZYPREXA 5 MG TAB5 M1 PO
[2020-11-15 22:40] VITALS: BP 138/67
--- NOTE | 2020-11-16 00:25 | NUR ---
ADMIT FROM [facility]. COVID POSITIVE 11/15/20 WITH INCREASE NEED OF O2 PER NC. PT IS A MOUTH BREATHER. LUNGS WHEEZES AND DIMINISHED. PT ALERT, CONFUSED, FOLLOWS DIRECTIONS, LETHARGIC. INCONTINENT. BED ALARM ON. COCCYX WOUNDS PICTURE TAKEN. PROVIDER CONTACTED RE ORDERS. RESPIRATORY UPDATED RE O2 NC 4L. SON AWARE OF TRANSFER AND NEW ROOM NUMBER. PT HAS A BAG OF CLOTHES IN ROOM THAT INCLUDES SHOES AND A CAR GALVEZ. PT ADMITTED TO [facility] BECAUSE HE WAS FOUND WANDERING IN FRONT OF A HOUSE AND CONFUSED.
[2020-11-16 03:48] VITALS: BP 114/65
[2020-11-16 05:13] LABS: HEMATOCRIT 40.7 % (42.0-52.0); HEMOGLOBIN 13.4 gm/dL (14.0-18.0); MCHC 32.9 g/dL (28.0-37.0); MCV 91.2 fL (80.0-100.0); RBC 4.46 mil/uL (4.50-6.00)
[2020-11-16 05:23] LABS: ALBUMIN 2.3 g/dL (3.4-5.0); CALCIUM 8.3 mg/dL (8.5-10.1); CREATININE 1.1 mg/dL (0.7-1.3); POTASSIUM 4.7 mmol/L (3.5-5.1); TOTAL BILIRUBIN 0.5 mg/dL (0.2-1.0); TOTAL PROTEIN 6.7 g/dL (6.4-8.2)
[2020-11-16 08:21] VITALS: BP 112/62
[2020-11-16 11:05] VITALS: BP 139/61
[2020-11-16 15:20] VITALS: BP 134/81
[2020-11-16 19:09] VITALS: BP 125/74
--- NOTE | 2020-11-16 19:14 | NUR ---
ASSUMED PATIENT CARE AT 0700. AWAKE. NOT FOLLOW COMMAND. ON 3L/NC. POOR APPETITE. NOT TOWARDS POC GOAls.
--- NOTE | 2020-11-16 23:20 | NUR ---
PT ALERT CONFUSED RESTING IN BED. O2 PER NC. LUNGS COARSE. PT RESTLESS IN BED. BED ALARM ON. REAMINS INCONTINENT.
--- NOTE | 2020-11-17 00:33 | NUR ---
PROVIDER NOTIFIED OF INCREASE IN GUTTERAL AND COARSE LUNG SOUNDS. REVIEWED IVF. RATE DECREASED TO 60.
[2020-11-17 04:20] VITALS: BP 120/69
[2020-11-17 05:10] LABS: BASOPHILS 0.1 % (0.0-2.0); EOSINOPHILS 0.1 % (0.0-3.0); HEMATOCRIT 37.4 % (42.0-52.0); HEMOGLOBIN 12.5 gm/dL (14.0-18.0); LYMPHOCYTES 6.9 % (24.0-44.0); MCH 30.3 pg (26.0-34.0); MCHC 33.5 g/dL (28.0-37.0); MCV 90.6 fL (80.0-100.0); MONOCYTES 7.5 % (1.0-8.0); PLATELET COUNT 149 thou/uL (150-400); POLYS 85.4 % (36.0-66.0); RBC 4.13 mil/uL (4.50-6.00); RDW 14.1 % (10.5-14.5); WBC 7.1 thou/uL (4.0-11.0)
[2020-11-17 05:39] LABS: CALCIUM 7.9 mg/dL (8.5-10.1); CREATININE 0.9 mg/dL (0.7-1.3); DIRECT BILIRUBIN 0.1 mg/dL (<0.1-0.2); PHOSPHORUS 2.5 mg/dL (2.5-4.9); POTASSIUM 4.4 mmol/L (3.5-5.1); TOTAL BILIRUBIN 0.3 mg/dL (0.2-1.0); TOTAL PROTEIN 5.9 g/dL (6.4-8.2)
[2020-11-17 05:58] LABS: D-DIMER 8.92 ug/mLFEU (0.19-0.50); INR 1.09; PROTIME 11.8 Seconds (10.5-12.1)
[2020-11-17 08:15] VITALS: BP 138/66
[2020-11-17 12:30] VITALS: BP 133/73
[2020-11-17 16:15] VITALS: BP 152/78
[2020-11-17 19:35] VITALS: BP 156/83
--- NOTE | 2020-11-18 00:42 | NUR ---
PROGRESS PT ALERT BUT NOT ORIENTED, COOPERATIVE WITH CARES. LUNGS COARSE WITH AND OCCASINAL WET SOUNDING COUGH, SECRETIONS NOT VISUALIZED PT SWALLOWS THEM. IV TO LEFT FOREARM INTACT FLUSHES WITHOUT DIFFICULTY. 22 GAUGE IV STATED IN LAC IV ANTIBIOTICS ADMINISTERED ORDERED. PT DENIES PAIN. ON 3 LITERS O2 VIA NASAL CANULA SATS IN MID 90'S. PT REMAINS IMPULSIVE DID TRY TO GET OOB UNASSITED X 1 THIS EVENING. CONTINUE TO MONITOR.
[2020-11-18 03:51] VITALS: BP 127/72
[2020-11-18 05:07] LABS: HIV ANTIBODY Non Reactive (Non Reactive)
[2020-11-18 06:19] LABS: CALCIUM 7.9 mg/dL (8.5-10.1); CREATININE 0.8 mg/dL (0.7-1.3); DIRECT BILIRUBIN 0.1 mg/dL (<0.1-0.2); PHOSPHORUS 2.3 mg/dL (2.5-4.9); POTASSIUM 4.4 mmol/L (3.5-5.1); TOTAL BILIRUBIN 0.4 mg/dL (0.2-1.0); TOTAL PROTEIN 5.9 g/dL (6.4-8.2)
[2020-11-18 07:24] VITALS: BP 143/80
[2020-11-18 11:55] VITALS: BP 153/91
[2020-11-18 12:14] VITALS: BP 148/76
--- NOTE | 2020-11-18 12:25 | NUR ---
care assumd this am, pt alert to self,confused. denies pain, nausea and vomitting. currently on 3l of oxygen, sob with exertion. unable to follow some commands. mostly asleep during shift. refuse to eat. enhanced prec. in place. pt son called and updated about care. incontinent of bowel and urine, pads changed as needs. repositioned q2h. will continue to monitor
[2020-11-18 16:10] VITALS: BP 144/78
[2020-11-18 19:06] VITALS: BP 117/85
--- NOTE | 2020-11-19 03:11 | NUR ---
PROGRESS PT ALERT TO SELF, TALKATIVE AND PLEASANT THIS SHIFT. DRANK 2 ICE TEAS WITH ASSIST NO CHOKING OR DIFFICULTY SWALLOWING NOTED. REFUSED APPLESAUCE STATED "HE JUST WASN'T HUNGRY". PERICARE AND WOUND CARE PERFORMED BUTTOCKS CLEANSED AND ZGUARD AND BARRIER CREAM APPLIED. TURNING FREQUENTLY AND USING WEDGE TO OFFLOAD. IVF'S INFUSING INTO LEFT WRIST AT 80CC/HR ANIBIOTICS GIVEN ORDERED. PT INCONTINENT OF URINE, NO BM THIS SHIFT. TELEMETRY INTACT READING SR/SA/SB
[2020-11-19 03:20] VITALS: BP 189/81
[2020-11-19 04:34] LABS: HEMATOCRIT 42.8 % (42.0-52.0); HEMOGLOBIN 13.9 gm/dL (14.0-18.0); MCH 29.8 pg (26.0-34.0); MCHC 32.5 g/dL (28.0-37.0); MCV 91.8 fL (80.0-100.0); RBC 4.66 mil/uL (4.50-6.00); RDW 14.3 % (10.5-14.5); WBC 9.6 thou/uL (4.0-11.0)
[2020-11-19 05:00] LABS: CALCIUM 7.9 mg/dL (8.5-10.1); CREATININE 0.9 mg/dL (0.7-1.3); DIRECT BILIRUBIN 0.2 mg/dL (<0.1-0.2); PHOSPHORUS 1.9 mg/dL (2.5-4.9); POTASSIUM 4.3 mmol/L (3.5-5.1); TOTAL BILIRUBIN 0.5 mg/dL (0.2-1.0); TOTAL PROTEIN 5.9 g/dL (6.4-8.2)
[2020-11-19 07:41] VITALS: BP 134/68
[2020-11-19 08:04] VITALS: BP 124/73
[2020-11-19 11:43] VITALS: BP 136/67
--- NOTE | 2020-11-19 15:07 | NUR ---
ASSUMING CARE THIS AM, PT O2 SAT WAS IN THE LOW 80'S, O2 NCL INCREASED TO 15L, CONTINUE TO BE IN THE 80'S. DR. CURRAN CALLED AND MADE AWARE. OPTIFLOW 100%, FIO2 60L. PT CHANGE NEEDED WHEN INCONTINENT. DR Rolan CURRAN STATED HE WILL TALK TO PT FAMILY ABOUT PT STATUS. FALL AND ENHANCED PREC. IN PLACE.
[2020-11-19 15:34] VITALS: BP 122/58
[2020-11-19 19:28] VITALS: BP 129/59
--- NOTE | 2020-11-19 20:37 | NUR ---
PT REMOVING OPTIFLOW SATS DROPPING TO LOW 30'S ORDER FOR SOFT WRIST RESTRAINTS OBTAINED. RESTRAINTS APPLIED. PT IS UNDIRECTABLE AND WILL NOT FOLLOW COMMANDS
--- NOTE | 2020-11-19 20:41 | NUR ---
SPOKE TO SON ELLIS TEIXEIRA AND NOTIFIED HIM OF SITUATION AND NEED FOR RESTRAINT HE APPRECIATED CALL AND WAS OK WITH RESTRAINTS BEING APPLIED.
[2020-11-20 03:01] VITALS: BP 135/65
--- NOTE | 2020-11-20 03:13 | NUR ---
PROGRESS PT ALERT TO SELF BUT REMAINS CONFUSED PULLING OFF OPTIFLOW O2 SATS DROPPING INTO THE 30'S. ORDER FOR SOFT WRIST RESTRAINTS OBTAINED AND RESTRAINTS APPLIED. OPTIFLOW REMAINS IN PLACE 60L/100% FIO2 SATS AT 94% PT DOESN'T SEEM TO BE IN RESPIRATORY DISTRESS. REPOSITIONED Q2HRS, RESTRAINTS REMOVED SKIN AND NEURO CHECKS PER PROTOCOL Q2HRS ALL WNL. EXTERNAL CATHETER APPLIED DRAINING A SMALL AMOUNT OF CLEAR LIGHT JOCELYN URINE. PT REFUSING NECTAR THICK LIQUIDS AND IS RESISTANT TO ORAL CARE. TELL INTACT READING SR/SA WITH RATES IN THE 80'S. IVF'S CONTINUE, ANTIBIOTICS ADMINISTERED ORDERED. CONTINUE POC.
[2020-11-20 03:47] LABS: HEMATOCRIT 39.4 % (42.0-52.0); MCH 29.9 pg (26.0-34.0); MCHC 32.9 g/dL (28.0-37.0); MCV 90.9 fL (80.0-100.0); RBC 4.33 mil/uL (4.50-6.00); RDW 14.2 % (10.5-14.5); WBC 9.8 thou/uL (4.0-11.0)
[2020-11-20 04:01] LABS: CALCIUM 7.9 mg/dL (8.5-10.1); CREATININE 0.8 mg/dL (0.7-1.3); POTASSIUM 4.9 mmol/L (3.5-5.1)
[2020-11-20 07:24] VITALS: BP 121/56
[2020-11-20 11:24] VITALS: BP 131/66
[2020-11-20 15:14] VITALS: BP 135/60
[2020-11-20 20:13] VITALS: BP 122/56
[2020-11-21 04:49] VITALS: BP 126/53
[2020-11-21 05:25] LABS: WBC 8.7 thou/uL (4.0-11.0)
[2020-11-21 05:27] LABS: HEMATOCRIT 41.3 % (42.0-52.0); HEMOGLOBIN 13.6 gm/dL (14.0-18.0); MCH 29.6 pg (26.0-34.0); MCV 89.6 fL (80.0-100.0); PLATELET COUNT 197 thou/uL (150-400); RDW 14.2 % (10.5-14.5)
[2020-11-21 05:47] LABS: ALBUMIN 1.6 g/dL (3.4-5.0); CALCIUM 7.5 mg/dL (8.5-10.1); CREATININE 0.8 mg/dL (0.7-1.3); POTASSIUM 3.6 mmol/L (3.5-5.1); TOTAL BILIRUBIN 0.7 mg/dL (0.2-1.0); TOTAL PROTEIN 5.4 g/dL (6.4-8.2)
[2020-11-21 07:24] LABS: ABSOLUTE NEUTROPHILS 7.5 thou/uL (1.4-8.2)
[2020-11-21 07:25] LABS: PLATELET ESTIMATE NORMAL
[2020-11-21 07:50] VITALS: BP 150/64
[2020-11-21 10:38] LABS: BE(vivo) 4.2 mmol/L (-2 to +3); HCO3 27.9 mmol/L (22.0-26.0); PO2 59.1 mmHg (80.0-100.0); pH 7.473 (7.360-7.450); sO2 92.2 % (92.0-98.0)
[2020-11-21 11:18] VITALS: BP 148/68
[2020-11-21 16:01] VITALS: BP 126/65
[2020-11-21 19:47] VITALS: BP 136/80
[2020-11-22] VITALS (23 sets, daily range): BP systolic 75–152; BP diastolic 43–86
[2020-11-22 05:00] LABS: ABSOLUTE NEUTROPHILS 9.9 thou/uL (1.4-8.2); BASOPHILS 0.2 % (0.0-2.0); HEMATOCRIT 42.3 % (42.0-52.0); HEMOGLOBIN 14.1 gm/dL (14.0-18.0); LYMPHOCYTES 2.6 % (24.0-44.0); MCHC 33.4 g/dL (28.0-37.0); MCV 89.8 fL (80.0-100.0); MONOCYTES 5.2 % (1.0-8.0); PLATELET COUNT 189 thou/uL (150-400); RBC 4.71 mil/uL (4.50-6.00); RDW 14.2 % (10.5-14.5); WBC 10.7 thou/uL (4.0-11.0)
[2020-11-22 05:43] LABS: D-DIMER 14.33 ug/mLFEU (0.19-0.50)
[2020-11-22 05:58] LABS: ALBUMIN 1.5 g/dL (3.4-5.0); CALCIUM 7.6 mg/dL (8.5-10.1); CREATININE 0.7 mg/dL (0.7-1.3); DIRECT BILIRUBIN 0.2 mg/dL (<0.1-0.2); PHOSPHORUS 1.6 mg/dL (2.5-4.9); POTASSIUM 4.2 mmol/L (3.5-5.1); TOTAL BILIRUBIN 0.6 mg/dL (0.2-1.0); TOTAL PROTEIN 5.6 g/dL (6.4-8.2)
--- NOTE | 2020-11-22 17:43 | NUR ---
DR CURRAN NOTIFIED OF PATIENT DESATING DOWN TO 79% MAXED OUT ON OPTIFLOW AND NRB. EVEN WITH HALDOL AND MORPHINE 1X TO HELP WITH AGGITATION. ATTEMPTED PATIENT ON BIPAP, PT BECOMES VERY AGITATED AND RIPS OFF MASK. BIPAP DOES BRING O2 SATURATION UP TO 89% BUT SOON BIPAP IS TAKEN OFF PATIENT DESATS BACK DOWN TO 79%. ORDERS FOR 2MG MORPHINE RECIEVED. AND MAGDY TO TALK TO SON.
--- NOTE | 2020-11-22 19:28 | NUR ---
Patient transfered to the ICU ROOM 238. Oxygen saturations in the 70's. RT present at time of transfer, report given to icu nurse at bedside. Son Baldomero called and notified of transfer.
--- NOTE | 2020-11-22 22:29 | NUR ---
PT ARRIVED TO ICU APPROX 1849, RECEIVED BEDSIDE REPORT FROM 3W RN. PT ON 100% FIO2 BIPAP, W/SATS IN MID 80'S, RAPID RR 30-40, LOW BP. RESTRAINTS IN PLACE. SPOKE TO DR. JALLOH AT 2044, OBTAINED ORDER FOR CENTRAL LINE PLACEMENT IN AM, GIVE 1L NS BOLUS OVER 2 HOURS, AND CAN START LEVOPHED AND VASO GTTs NEEDED. RT INCREASED EPAP TO 10, SATS NOW 89-90%. WILL CONTINUE TO MONITOR.
[2020-11-23] VITALS (57 sets, daily range): BP systolic 67–160; BP diastolic 39–140
[2020-11-23 06:29] LABS: HEMATOCRIT 38.8 % (42.0-52.0); HEMOGLOBIN 12.9 gm/dL (14.0-18.0); MCH 29.5 pg (26.0-34.0); MCHC 33.2 g/dL (28.0-37.0); MCV 88.8 fL (80.0-100.0); RBC 4.37 mil/uL (4.50-6.00); RDW 14.1 % (10.5-14.5); WBC 18.8 thou/uL (4.0-11.0)
[2020-11-23 06:54] LABS: ALBUMIN 1.2 g/dL (3.4-5.0); CREATININE 0.9 mg/dL (0.7-1.3); DIRECT BILIRUBIN 0.2 mg/dL (<0.1-0.2); PHOSPHORUS 2.2 mg/dL (2.5-4.9); POTASSIUM 3.7 mmol/L (3.5-5.1); TOTAL BILIRUBIN 0.4 mg/dL (0.2-1.0)
--- NOTE | 2020-11-23 07:36 | NUR ---
Pt TRANSFERRED TO ICU. WILL PLACE ON HOLD AND AWAIT NEW ORDERS WHEN APPROPRIATE
--- NOTE | 2020-11-23 08:50 | HC ---
[facility] [place] [address] CONSULTATION Name: ELLIS TEIXEIRA Room #: 238-P ADM IN M.R.#: [id number] Admission: 11/15/20 Attend Phys: Thuy Fabian MD Discharge: Date of : 34 Report #: [id number] THIS REPORT FOR: cc: INEZ - Family physician unknown INEZ - Family physician unknown Oleg Young MD ~ DATE OF SERVICE: 11/15/2020 WOUND CARE CONSULTATION PERSONAL PHYSICIAN: Dr. Ralph. CHIEF COMPLAINT: Gluteal ulcers. HISTORY OF PRESENT ILLNESS: This is an 84-year-old white male who is currently admitted to the geriatric psych unit and is on COVID-19 isolation who was found to have 2 mall gluteal decubitus ulcers. The patient was initially seen by the wound care nurse and then we were asked to follow the patient as well. The patient is unable to give any history. Nursing staff stated he has no other associated wounds at this time. PAST MEDICAL HISTORY: Significant for hypertension, hyperlipidemia, dementia. CURRENT MEDICATIONS: Multiple. DRUG ALLERGIES: None. I reviewed the patient's medication list. SOCIAL HISTORY, FAMILY HISTORY AND REVIEW OF SYSTEMS: All unobtainable at this time because of the patient's dementia. PHYSICAL EXAMINATION: VITAL SIGNS: Temperature 36.8, pulse 89, respirations 18, BP 150/105. GENERAL: This is awake and oriented x1 male who is in no obvious distress. The patient is currently in COVID-19 precautions and isolation. HEENT: Normocephalic, atraumatic. Mucous membranes are dry. Pupils are round. Sclerae white. LUNGS: Diminished breath sounds heard throughout. NECK: Without JVD. HEART: Regular. ABDOMEN: Soft and nontender. EXTREMITIES: Evaluation of bilateral gluteal region reveals 2 small stage II decubitus ulcer with intact dermal tissue and early breakdown. No signs of cellulitis. Ulcers are otherwise intact without significant drainage or odor. The patient moves all extremities without difficulty. Bilateral heels are [address] [address] CONSULTATION Name: ELLIS TEIXEIRA Room #: 238-P [facility] IN M.R.#: [id number] Admission: 11/15/20 Attend Phys: Thuy Fabian MD Discharge: Date of : 34 Report #: [id number] intact. NEUROLOGIC: Cranial nerves 2-12 grossly intact. Motor and sensory are grossly intact. LABORATORY DATA: BUN 13, creatinine 0.9, albumin 3.5. IMPRESSION: 1. Bilateral stage II decubitus ulcers to the gluteal region. 2. Generalized debility. 3. History of psychiatric disorder. 4. COVID-19 positive. PLAN: We will start barrier cream to the gluteal ulcers twice daily and p.r.n. We have the patient offloaded while in bed and turned every 2 hours. We will have a cushion placed in a chair when he is up and sitting. We will make sure we maximize the patient's protein supplementation for continued healing. The patient is currently under COVID-19 protocol being followed by the hospitalist. We will continue all other current medications. <ELECTRONICALLY SIGNED> By: Oleg Young MD 11/23/20 0850 [id number] 36 Oleg Young MD /nt
--- NOTE | 2020-11-23 12:32 | NUR ---
VAT CONSULTED TO PLACED CVL. RIGHT IJ TL 6FR JACC PLACED. ALL LUMENS PATENT AND RETURN BLOOD. PT TOLERATED WELL. RADIOLOGY REPORTS TIP OVERLIES ATRIUM. WILL PULL BACK 2.5CM PER REPORT. RN MAY USE LINE, PER HOSPITAL VASCULAR ACCESS [id number].
--- NOTE | 2020-11-23 14:37 | NUR ---
Chart review. Dx Covid +. transferred down from [facility]. Enhanced isolation and require use of bipap. Cm visited with son # [phone]. Intro to cm and dcp. Donya lives in ranch style home with daughter amy. Has steps to basement but he doesnt not have to do them. very independent , cooks, bathes and dresses self. manage own medication. No longer drives. PCP Dr Mckeon. Sister is retired and home most of the time per son donya. Will cont following as needed for dc needs.
--- NOTE | 2020-11-23 19:23 | NUR ---
ASSUMED CARE OF PT AT 0700. PT DROWSRY ON BIPAP. PT IMPULSIVE AND ATTMEPTS TO PULL AT MEDICAL EQUIPMENT WHEN STIMULATED. ROUNDS WITH DR JALLOH AT 0900. ALBUMIN AND LASIX IVP GIVEN. PT WITH [facility] UO AFTER LASIX. DR CURRAN ROUNDED THIS EVENING. TPN ORDERED PER PHARMACY DOSING. ORDER PLACED. WILL CONTINUE TO MONITIOR.
[2020-11-24] VITALS (51 sets, daily range): BP systolic 86–209; BP diastolic 40–174
[2020-11-24 04:55] LABS: HEMATOCRIT 35.5 % (42.0-52.0); HEMOGLOBIN 11.9 gm/dL (14.0-18.0); MCH 29.7 pg (26.0-34.0); MCHC 33.6 g/dL (28.0-37.0); MCV 88.4 fL (80.0-100.0); RBC 4.02 mil/uL (4.50-6.00); RDW 14.1 % (10.5-14.5); WBC 17.9 thou/uL (4.0-11.0)
[2020-11-24 05:00] LABS: CREATININE 0.8 mg/dL (0.7-1.3); DIRECT BILIRUBIN 0.2 mg/dL (<0.1-0.2); PHOSPHORUS 2.2 mg/dL (2.5-4.9); POTASSIUM 3.7 mmol/L (3.5-5.1); TOTAL BILIRUBIN 0.6 mg/dL (0.2-1.0); TOTAL PROTEIN 4.8 g/dL (6.4-8.2)
--- NOTE | 2020-11-24 07:07 | NUR ---
TITRATED PRECEDEX OVERNIGHT WHEN PT WOULD BECOME TACHYPNIC UPPER 50'S AND THRASH IN BED. O2 SATS DROPPED LOW MID 70'S, AND AT BEST WERE 92%. OBTAINED ORDER AT MIDNIGHT TO STOP IVF AND ADD Q6H INSULIN.
--- NOTE | 2020-11-24 11:53 | NUR ---
Pt at high risk for refeeding syndrome due to severe malnutrition and eating negligible amounts past week. Start tpn at 30ml/hr and progress slowly to goal 75ml/hr. Replace any electrolyte abnormalities. Pharmacy will manage tpn.
--- NOTE | 2020-11-24 15:05 | NUR ---
Discussed during los with hospitalist, and during unite rounds. Cont. to require use of Bipap. No anticipated dc over the weekend. Covid +, enhanced isolation. TPN to start for nutritional support. BPCI.
--- NOTE | 2020-11-24 18:12 | NUR ---
AT APPROXIMATELY 1645 PT NOTED TO HAVE INCREASE WORK OF BREATHING EVIDENCE BY TACHYPNEA, ACCESSORY MUSCLE USE AND LOW O2 SATURATION. AT THAT TIME DR JALLOH WAS CONTACTED. ORDER FOR ATIVAN AND MORPHINE GIVEN. SON WAS CALLED AND NOTIFIED OF PT STATUS AND MEDICATION ORDERS, HE VERBALIZED UNDERSTANDING OF MEDICATION USE. RESTRAINS DISCONTINUED AT 1730. WILL CONTINUE TO MONITOR.
[2020-11-25] VITALS (17 sets, daily range): BP systolic 75–116; BP diastolic 36–52
--- NOTE | 2020-11-25 04:00 | NUR ---
Pt. has been tachypneic in the mid 40's to 50's at beginning of shift. BIPAP at 100% with O2 sat in the mid 70's. Verbally unresponsive and withdraws with stimulation. He has been repositioned prn. Morphine given for air hunger with some help. Periods of being restless. Lorazepam and morphine given together and it helped better to calm him down and for air hunger. Still tachypneic bu resp rate down to low 30's with O2 sat of 87% on BIPAP at 100% FIO2. BEN[employer]PENTER updated on pt. condition and family's wishes to continue tx but no intubation per report. Attempted to call son around 2143 to give him update but no answer. TPN infusing at 30 ml/hr and scheduled IV anibiotics. Cont. on enhanced precaution , afebrile. Not progressing towards care plan goals.
[2020-11-25 06:19] LABS: HEMATOCRIT 39.6 % (42.0-52.0); HEMOGLOBIN 12.5 gm/dL (14.0-18.0); MCH 28.7 pg (26.0-34.0); MCHC 31.6 g/dL (28.0-37.0); MCV 90.9 fL (80.0-100.0); RBC 4.36 mil/uL (4.50-6.00); RDW 15.7 % (10.5-14.5)
[2020-11-25 06:23] LABS: WBC 33.9 thou/uL (4.0-11.0)
[2020-11-25 06:34] LABS: ALBUMIN 2.1 g/dL (3.4-5.0); CALCIUM 7.5 mg/dL (8.5-10.1); CREATININE 1.2 mg/dL (0.7-1.3); DIRECT BILIRUBIN 0.2 mg/dL (<0.1-0.2); PHOSPHORUS 4.8 mg/dL (2.5-4.9); POTASSIUM 4.4 mmol/L (3.5-5.1); TOTAL BILIRUBIN 0.4 mg/dL (0.2-1.0); TOTAL PROTEIN 5.7 g/dL (6.4-8.2)
--- NOTE | 2020-11-25 19:40 | NUR ---
RN ASSUMED PT'S CARE AT 1140-1900PM, PT IS TRANFERED FROM ICU , PT IS DNR, PT IS ON BIPAP WITH O2 100%, PT IS ON TPN 30-40 ML/HR, AND IV BAX, PT IS NOT RESPONSIVE , RN HAS CALLED HOSPITAL DR AND PULMONLOGY DR TO REPORT PT'S LOW BP AND LOW O2SAT ,ANURINC, NEW ORDER RECEIVED, HOSPITAL DR HAS TALKING TO PT'S SON AND UPDATED PT'S INFORMATION . RN HAS REPORTED TO NEXT SHIFT TO KEEP ON PT.
[2020-11-26 03:37] VITALS: BP 81/43
--- NOTE | 2020-11-26 06:47 | NUR ---
Pt. remains tachypneic , BIPAP at 100% with O2 sat in the 80's. Morphine and lorazepam given to help with air hunger and to help keep him comfortble. Low BP in the 80's and low urine output , 25 ml this shift. Pt. polina down in the 30's and 40's then back up to 50's ,SB. Son ,Baldomero updated on pt. condition at HS then when HR polina down he was called again. Son was asked if he would like to visit with pt. or do face time so he can see his dad. He stated he will get hold of his sister and will probably stop by today. Informed him of pt.'s cont. decline such as low BP,low urine output , low O2 sat despite being on BIPAP at 100%. and stated to continue treatment that we are doing currently but he is aware that we are giving him medication to help with anxiety and air hunger. [employer] updated on pt.s condition . She tried to get hold of son but unable. NS bolus and albumin given for BP support as ordered. Not progressing towards care plan goals.
[2020-11-26 06:59] LABS: CALCIUM 7.5 mg/dL (8.5-10.1); MAGNESIUM 2.7 mg/dL (1.8-2.4); POTASSIUM 5.4 mmol/L (3.5-5.1)
[2020-11-26 07:02] LABS: CREATININE 2.8 mg/dL (0.7-1.3)
[2020-11-26 07:45] VITALS: BP 61/36
[2020-11-26 08:00] VITALS: BP 55/36
[2020-11-26 08:48] LABS: T-SPOT.TB Negative
[2020-11-26 09:00] VITALS: BP 50/35
[2020-11-26 10:00] VITALS: BP 50/36
--- NOTE | 2020-11-26 14:22 | NUR ---
RN ASSUMED PT'S CARE AT 0700AM, PT STILL IS NOT RESPONSIVE, PT IS ON BIPAP WITH O2 100%, BUT PT'S O2SAT AND BP ARE CONTINUING DECRASE ,EVEN WITH USEING MEDICATIONS, RN HAS CALLED PT'S SON AND HOSPITAL DR ABOUT PT IS DYING ,PT IS DNR, PT IS AT 1110AM, WE FOLLOW [facility] AND WE HAVE FINISHED BODY CARE, HOSPITAL SECURITY OFFICERS KNITTING MACHINE TENDER BODY AT 1430PM. RN HAS NOTIFIED PT'S FAMILY .
== END 2020-11-26 11:10 | DRG 177 ==
LOC: 3W 19:50 → ICU 11-22 18:54 → 3W 11-25 11:45
PROVIDERS: Hospitalist; Internal Medicine Pulmonary Disease; Nurse Practitioner Family; Specialist; ADMIT Hospitalist; ATTEND Hospitalist
DX: U07.1 COVID-19 (principal); J96.01 Acute respiratory failure with hypoxia; L89.323 Pressure ulcer of left buttock, stage 3; L89.313 Pressure ulcer of right buttock, stage 3; E43 Unspecified severe protein-calorie malnutrition; L89.893 Pressure ulcer of other site, stage 3; J12.82 Pneumonia due to coronavirus disease 2019; G93.40 Encephalopathy, unspecified; I10 Essential (primary) hypertension; Z66 Do not resuscitate; R53.81 Other malaise; L89.322 Pressure ulcer of left buttock, stage 2; L89.312 Pressure ulcer of right buttock, stage 2; M85.80 Other specified disorders of bone density and structure, unspecified site; K21.9 Gastro-esophageal reflux disease without esophagitis; F03.90 Unspecified dementia, unspecified severity, without behavioral disturbance, psychotic disturbance, mood disturbance, and anxiety; E78.5 Hyperlipidemia, unspecified; E04.1 Nontoxic single thyroid nodule; Z79.899 Other long term (current) drug therapy; Z68.21 Body mass index [BMI] 21.0-21.9, adult
CPT/HCPCS: 10078; 10879